=== PATIENT | female | born 1950 | race Caucasian/White ===

== ENCOUNTER → 2017-02-17 17:05 | Outpatient (CLI) | payer MEDICARE | END | disposition home or self-care (01) | LOC: D.MAMMO 11:30 | DX: N64.4 Mastodynia (principal) ==

== ENCOUNTER 2017-09-03 06:18 | Outpatient (CLI) | payer MEDICARE ==
[~2017-09-03] VITALS: Ht 167.6 cm; Wt 59.5 kg
--- NOTE | ~2017-09-03 | HEMODYNAMI ---
PATIENT:CAMACHO NOLAN MEDICAL RECORD: [id number] : 48 LOCATION:[facility] ADMISSION DATE: 09/03/17 Generatedon:09/03/20179:09 Patient name: CAMACHO NOLAN Patient #: [id number] SSN: : 1950 Date of study: 09/03/2017 Page: Of Hemodynamic Procedure Report Patient Data Patient Demographics Procedure consent was obtained First Name: CAMACHO Gender: Female Last Name: AN : 1950 [facility] Initial: G Age: 66 year(s) Patient #: [id number] Race: Unknown Additional ID: [id number] Contact details Address: [address] [place] [address] State: [facility] Zip code: [address] Past Medical History Allergies: No known allergies Admission Admission Data Admission Date: 09/03/2017 Admission Time: 6:18 Lab Results Lab Result Date: 09/03/2017 Lab Result Time: 7:30 Biochemistry Name Units Result Min Max BUN mg/dl 9 --(*---)-- 7 18 Creatinine mg/dl 0.6 --(*---)-- 0.6 1.3 CBC Name Units Result Min Max Hematocrit % 40.3 -*(----)-- 42 54 Hemoglobin g/dl 14.2 --(*---)-- 13.5 17.5 Procedure Procedure Types Cath Procedure Diagnostic Procedure [facility] w/Coronaries Procedure Description Procedure Date Procedure Date: 09/03/2017 Procedure Start Time: 8:57 Procedure End Time: 9:08 Procedure Staff Name Function Rikki Baxter MD Performing Physician Akila Grayson RT Monitor Alycia North RT Scrub Johan Stanton RN Nurse Procedure Data Cath Procedure Fluoroscopy Diagnostic fluoroscopy Total fluoroscopy Time: 1.6 time: 1.6 min min Diagnostic fluoroscopy Total fluoroscopy dose: 234 dose: 234 mGy mGy Contrast Material Contrast Material Type Amount (ml) Isovue 300 45 Entry Location Entry Primary Successful Side Size Upsize Upsize Entry Closure Reynolds ccessful Closure Location (Fr) 1 (Fr) 2 (Fr) Remarks Device Remarks Radial Right 6 Fr Mechanical artery Short Compression Estimated blood loss: 5 ml Diagnostic catheters Device Type Used For End Catheter Placement DIAGNOSTIC Pratts 110cm 5 Procedure Fr catheter ([id number]) Procedure Complications No complications Procedure Medications Medication Administration Route Dosage 0.9% NaCl I.V. 100 ml/hr Oxygen etCO2 Nasal cannula 2 l/min Heparin Flush Bag added to field 2 bags (1000units/500ml NS) Lidocaine 2% added to field 20 Radial Cocktail added to field (Verapomil 2mg/Nitro 400mcg/Heparin 1500units) Versed I.V. 1 mg Fentanyl I.V. 50 mcg Versed I.V. 1 mg Fentanyl I.V. 50 mcg Radial Cocktail I.A. (Verapomil 2mg/Nitro 400mcg/Heparin 1500units) Hemodynamics Rest HGB: 14.2 (g/dl) Heart Rate: 68 (bpm) Pressure Samples Time Site Value (mmHg) Purpose Heart Use Rate(bpm) 9:00 LV 105/-1,10 Snapshot 83 9:01 AO 101/60(80) Pullback 83 9:01 LV 116/7,17 Pullback 83 Gradients Valve Time Site 1 Site 2 Mean SEP/DFP Peak To Heart Use (mmHg) (sec/min) Peak Rate (mmHg) (bpm) Aortic 9:01 LV AO 6 16 15 83 116/7,17 101/60(80) Calculations Valve P-P Mean Valve Index Valve Source Name Gradient Area Flow (cm2) Aortic 15 6 15 6 Snapshots Pre Cath Intra NCS Post Cath Vital Signs Time Heart Resp SPO2 etCO2 NIBP Rhythm Pain Sedation Rate (ipm) (%) (mmHg) (mmHg) Status Level (bpm) 8:41:00 70 20 100 0 123/65(83) NSR 0 (11) 10(A) , No pain 8:45:33 60 15 100 32.2 116/72(87) NSR 0 (11) 10(A) , No pain 8:50:07 72 20 100 36.7 100/75(87) NSR 0 (11) 10(A) , No pain 8:54:37 70 19 97 32.9 106/75(96) NSR 0 (11) 10(A) , No pain 8:59:10 82 19 96 0 97/61(88) NSR 0 (11) 9(A) , No pain 9:03:44 84 18 97 31.4 89/50(68) NSR 0 (11) 9(A) , No pain 9:08:16 78 9 98 40.4 86/48(73) NSR 0 (11) 9(A) , No pain Medications Time Medication Route Dose Verified Delivered Reason Notes Ef fectiveness by by 8:46:16 0.9% NaCl I.V. 100 Johan Johan Per ml/hr Romy Stanton physician RN RN 8:46:27 Oxygen etCO2 2 Johan Johan Per Nasal l/min Romy Stanton physician cannula RN RN 8:46:38 Heparin Flush added 2 Johan Johan used for Bag to bags Romy Stanton procedure (1000units/500ml field RN RN NS) 8:46:51 Lidocaine 2% added 20ml Johan Johan for local to vial Lorigan Lorigan anesthetic RN RN 8:47:00 Radial Cocktail added Johan Johan used for (Verapomil to Lorigan Lorigan procedure 2mg/Nitro RN RN 400mcg/Heparin 1500units) 8:52:22 Versed I.V. 1 mg Johan Johan for sedation Romy Stanton RN RN 8:52:30 Fentanyl I.V. 50 Johan Johan for sedation mcg Romy Stanton RN RN 8:57:29 Versed I.V. 1 mg Johan Johan for sedation Romy Stanton RN RN 8:57:35 Fentanyl I.V. 50 Johan Johan for sedation mcg Romy Stanton RN RN 8:58:55 Radial Cocktail I.A. Johan Rikki for (Verapomil Romy Baxter MD vasodilation 2mg/Nitro RN 400mcg/Heparin 1500units) Procedure Log Time Note 8:34:05 Johan Stanton RN sent for patient. Start room use. 8:34:07 Time tracking: Regular hours 8:34:12 Plan of Care:Hemodynamics will remain stable., Cardiac rhythm will remain stable., Comfort level will be maintained., Respiratory function will remain adequate., Patient/ family verbilizes understanding of procedure., Procedure tolerated without complication., Recovers from procedure without complications.. 8:34:15 Signed procedure consent form obtained from patient. 8:35:58 Patient allergic to No known allergies 8:36:14 Patient received from Pre/Post Procedure Room to CCL 1 Alert and oriented. Tansferred to table in Supine position. 8:36:15 Warm blankets applied, and alejandra hugger turned on for patient comfort. 8:36:16 Correct patient and procedure confirmed by team. 8:36:16 ECG and BP/O2 sat monitors applied to patient. 8:39:34 Lab Result : Hemoglobin 14.2 g/dl 8:39:34 Lab Result : Hematocrit 40.3 % 8:39:34 Lab Result : BUN 9 mg/dl 8:39:34 Lab Result : Creatinine 0.6 mg/dl 8:40:12 Vital chart was started 8:40:18 Rhythm: sinus rhythm 8:46:16 0.9% NaCl 100 ml/hr I.V. was administered by Johan Stanton RN; Per physician; 8:46:27 Oxygen 2 l/min etCO2 Nasal cannula was administered by Johan Stanton RN; Per physician; 8:46:38 Heparin Flush Bag (1000units/500ml NS) 2 bags added to field was administered by Johan Stanton RN; used for procedure; 8:46:51 Lidocaine 2% 20ml vial added to field was administered by Johan Stanton RN; for local anesthetic; 8:47:00 Radial Cocktail (Verapomil 2mg/Nitro 400mcg/Heparin 1500units) added to field was administered by Johan Stanton RN; used for procedure; 8:49:49 Baseline sample Acquired. 8:49:51 Full Disclosure recording started 8:50:10 H&P Date Dictated: 08/31/2017 Within 30 days and on chart., H&P Addendum completed by physician on day of procedure. (MUST COMPLETE FOR ALL OUTPATIENTS). 8:50:12 Pre-procedure instructions explained to patient. 8:50:12 Pre-op teaching completed and patient verbalized understanding. 8:50:14 Family in patients room. 8:50:15 Patient NPO since Midnight. 8:50:18 Is the patient allergic to Iodine/contrast media? No. 8:50:19 Is patient on blood thinner?No 8:50:20 Patient diabetic? Yes. 8:50:22 If diabetic: On Metformin? No 8:50:25 Patient not . Patient is over age 55. 8:50:27 Previous problem with sedation/anesthesia? No ? 8:50:28 Snore? Yes 8:50:30 Sleep apnea? No 8:50:31 Deviated septum? No 8:50:32 Opens mouth fully? Yes 8:50:38 Sticks out tongue? Yes 8:50:40 Airway obstruction? No ? 8:50:43 Dentures? Yes IN TIGHT 8:50:46 Modified Eugenio's test Ulnar < 7 seconds 8:51:46 Patient pain scale 0/10 ?. 8:51:50 IV patent on arrival in left hand with 0.9% NaCl at [facility]. 8:51:53 Lab results completed and on chart. 8:51:55 Right Radial & Right Groin area was prepped with chlora-prep and draped in sterile fashion 8:51:57 Alarms reviewed by RKelvin N. 8:51:59 Sharps counted by scrub and verified by R.N. 8:52:01 --------ALL STOP TIME OUT------ 8:52:02 Final Timeout: patient, procedure, and site verified with staff and physician. All members of the team are in agreement. 8:52:04 Right Radial & Right Groin site verified by team. 8:52:06 Physical assessment completed. ASA score P 2 - A patient with mild systemic disease as per Rikki Baxter MD. 8:52:09 Sedation plan: IV Moderate Sedation Medication:Versed, Fentanyl 8:52:22 Versed 1 mg I.V. was administered by Johan Stanton RN; for sedation; 8:52:30 Fentanyl 50 mcg I.V. was administered by Johan Stanton RN; for sedation; 8:52:52 Use device set Radial Dx or PCI 8:52:53 ACIST Syringe (69101) opened to sterile field. 8:52:55 Bag Decanter () opened to sterile field. 8:52:56 ACIST Hand Control (59564) opened to sterile field. 8:52:56 ACIST Manifold (83303) opened to sterile field. 8:52:57 Tegaderm 4 x 4 (1626W) opened to sterile field. 8:52:58 Medline Cath Pack ([id number]) opened to sterile field. 8:52:58 SHEATH 6FR Slender ([id number]) opened to sterile field. 8:52:59 DIAGNOSTIC WIRE .035 260cm J wire (108476) opened to sterile field. 8:53:00 MBrace Wrist Support ([id number]) opened to sterile field. 8:55:07 Zero performed for pressure channel P1 8:56:46 Procedure started. 8:57:07 Local anesthetic to right radial artery with Lidocaine 2% by Rikki Baxter MD.INITIAL ACCESS ONLY 8:57:29 Versed 1 mg I.V. was administered by Johan Stanton RN; for sedation; 8:57:35 Fentanyl 50 mcg I.V. was administered by Johan Stanton RN; for sedation; 8:58:22 A 6 Fr Short sheath was inserted into the Right Radial artery 8:58:55 Radial Cocktail (Verapomil 2mg/Nitro 400mcg/Heparin 1500units) I.A. was administered by Rikki Baxter MD; for vasodilation; 8:59:42 A DIAGNOSTIC Pratts 110cm 5 Fr catheter ([id number]) was advanced over the wire and used for Procedure. 8:59:53 Injector settings: Ml/sec: 7, Volume: 15, 8:59:57 LV gram done using TAYLOR 9:00:00 LV hemodynamics recorded. 9:01:17 EF : 55 % 9:02:18 LCA angiography performed. 9:03:25 RCA angiography performed. 9:05:16 Catheter removed. 9:05:25 TR BAND Standard ([id number]) opened to sterile field. 9:05:37 Procedure ended.(Physican Out) 9:05:47 Fluoroscopy time 01.60 minutes. 9:05:53 Fluoroscopy dose: 234 mGy 9:05:53 Flurop Dose total: 234 9:06:07 Contrast amount:Isovue 300 45ml. 9:06:09 Sharps counted by scrub and verified by R.N. 9:06:17 Sheath removed intact; hemostasis achieved with Mechanical Compression to the Right Radial artery. 9:06:26 TR band inflated with 10cc of air. 9:07:34 Post-procedure physical assessment completed. ASA score P 2 - A patient with mild systemic disease as per Rikki Baxter MD. 9:07:40 Post procedure rhythm: unchanged. 9:07:43 Estimated blood loss: 5 ml 9:07:44 Post procedure instruction explained to patient.Patient verbalizes understanding. 9:07:45 Patient needs reinforcement of post procedure teaching. 9:08:26 Procedure and supply charges have been captured, reviewed, submitted and are correct. 9:08:28 Procedure Complication : No complications 9:08:31 Vital chart was stopped 9:08:32 See physician's report for complete and final results. 9:08:33 Report given to Pre/Post Procedure Room. 9:08:35 Patient transfered to Pre/Post Procedure Room with Bed. 9:08:37 Procedure ended. 9:08:37 Full Disclosure recording stopped 9:08:42 End room use (Document Last) Device Usage Item Name Manufacture Quantity Catalog Hospital Part Current Minima l Lot# / Number Charge Number Stock Stock Serial# Code ACIST Acist 1 11381 486228 545159 039018 20 Syringe Medical (87546) Systems Inc Bag Decanter Microtek 1 2001S 437164 16969 [id number] 5 (2001S) Medical Inc. ACIST Hand Acist 1 97050 743041 329204 585034 5 Control Medical (04011) Systems Inc ACIST Acist 1 63359 012997 412067 331277 5 Manifold Medical (31433) Systems Inc Tegaderm 4 x 3M 1 1626W 973994 769575 761176 5 4 (1626W) Medline Cath Cardinal 1 [id number] 040874 62428 692827 5 [facility] ([id number]) SHEATH 6FR Terumo 1 [id number] 923587 512148 961804 40 Slender ([id number]) DIAGNOSTIC [facility] [place] 1 198878 363679 376697 560472 30 WIRE .035 260cm J wire (213650) MBrace Wrist Advanced 1 140-0250-00 816564 32278 505120 5 Support Vascular ([id number]) Dynamics DIAGNOSTIC Terumo 1 40-6043 831298 523399 654658 5 Pratts 110cm 5 Fr catheter (301414) TR BAND Terumo 1 [id number] 311234 010905 982373 40 Standard ([id number]) Signature Audit [place] Stage Time Signature Unsigned Intra-Procedure 09/03/2017 Akila Grayson 9:09:21 AM RT(R) Signatures Monitor : Akila Grayson Signature : RT Date : Time : [facility] [address] [facility] [place] [address]
[2017-09-03] MEDS ORDERED: ZANTAC150 MG PO (07:26)
[2017-09-03] MEDS ORDERED: ATIVAN0.5 MG PO (07:26)
[2017-09-03] MEDS ORDERED: FORTEO PEN20 MCG SQ (07:28)
[2017-09-03 07:40] VITALS: BP 118/68; Ht 167.6 cm; Wt 59.5 kg
[2017-09-03 07:42] LABS: BASOPHILS 0.3 % (0-2); EOSINOPHILS 3.1 % (0-7); HEMATOCRIT 40.3 % (36.0-48.0); HEMOGLOBIN 14.2 g/dL (12-16); IMMATURE GRANULOCYTES 0.3 % (0-5); LYMPHOCYTES 47.1 % (15-50); MCH 31.4 pg (26.0-34.0); MCHC 35.2 g/dL (31.0-37.0); MCV 89.2 fL (80.0-100.0); MEAN PLATELET VOLUME 10.3 fL (7.4-10.4); MONOCYTES 11.2 % (2-11); PLATELET COUNT 129 10x3/uL (130-400); RBC 4.52 10x6/uL (4.00-5.40); RDW 13.3 % (11.5-14.5); WBC 3.6 10x3/uL (4.8-10.8)
[2017-09-03 07:58] LABS: CALC OSMOLALITY 276 mosm/kg (275-300); CALCIUM 9.1 mg/dL (8.5-10.1); CARBON DIOXIDE 26.4 mmol/L (21.0-32.0); CHLORIDE - SERUM 102 mmol/L (98-107); CREATININE - SERUM 0.6 mg/dL (0.6-1.3); GLUCOSE 86 mg/dL (74-106); POTASSIUM - SERUM 3.9 mmol/L (3.5-5.1); SODIUM 140 mmol/L (136-145); UREA NITROGEN 9 mg/dL (7-18); eGFR NON AFRICAN AMERICAN > 90 mL/min (90-120)
[2017-09-03] MEDS ORDERED: ISOSORBIDE MONO30 M1 PO (09:33)
== END 2017-09-03 12:30 | disposition home or self-care (01) ==
LOC: D.CATH 06:18
PROVIDERS: Internal Medicine Cardiovascular Disease
DX: I25.119 Atherosclerotic heart disease of native coronary artery with unspecified angina pectoris (principal); Z01.812 Encounter for preprocedural laboratory examination

== ENCOUNTER → 2018-01-07 08:38 | Outpatient (CLI) | payer MEDICARE ==
[2017-09-03 07:40] VITALS: BMI 21.1
[~2018-01-07 08:38] MED LIST: ATIVAN0.5 MG PO; FORTEO PEN20 MCG SQ; ISOSORBIDE MONO30 M1 PO; ZANTAC150 MG PO
== END | disposition home or self-care (01) ==
LOC: D.CT 08:38
DX: R41.3 Other amnesia (principal)

== ENCOUNTER → 2018-03-05 16:48 | Outpatient (CLI) | payer MEDICARE ==
[2017-09-03 07:40] VITALS: BMI 21.1
== END | disposition home or self-care (01) ==
LOC: D.MAMMO 15:15
DX: Z12.31 Encounter for screening mammogram for malignant neoplasm of breast (principal)

== ENCOUNTER 2019-02-14 08:00 | Outpatient (CLI) | payer MEDICARE ==
[2017-09-03 07:40] VITALS: Wt 67.1 kg
[~2019-02-14 08:00] MED LIST changes: +ATIVAN0.5 MG; -ATIVAN0.5 MG PO
[2019-02-14] MEDS ORDERED: LINZESS145 MCG PO (09:33)
[2019-02-14] MEDS ORDERED: CELEXA20 MG PO (09:33)
[2019-02-14] MEDS ORDERED: DONEPEZIL HCL5 MG PO (09:34)
[2019-02-14 09:38] LABS: HEMOGLOBIN 13.2 g/dL (12-16); MCH 31.3 pg (26.0-34.0); MCHC 35.7 g/dL (31.0-37.0); MCV 87.7 fL (80.0-100.0); MEAN PLATELET VOLUME 10.3 fL (7.4-10.4); RBC 4.22 10x6/uL (4.00-5.40); RDW 14.3 % (11.5-14.5); WBC 3.6 10x3/uL (4.8-10.8)
== END 2019-02-14 08:01 | disposition home or self-care (01) ==
LOC: D.OPS 08:00 → D.PAN 02-15 07:30 → D.OPS 02-15 10:00 → D.PAN 02-15 10:10 → D.OPS 02-15 10:30 → EDSTATUS 02-17 07:30 → D.OPS 02-17 07:30
PROVIDERS: Anesthesiology; ATTEND Urology
DX: N81.10 Cystocele, unspecified (principal); N81.6 Rectocele

== ENCOUNTER 2019-02-24 07:48 | Day surgery (SDC) | payer MEDICARE ==
[2019-02-23 09:44] LABS: HEMATOCRIT 39.2 % (36.0-48.0); HEMOGLOBIN 13.9 g/dL (12-16); MCH 31.8 pg (26.0-34.0); MCHC 35.5 g/dL (31.0-37.0); MCV 89.7 fL (80.0-100.0); MEAN PLATELET VOLUME 9.6 fL (7.4-10.4); RBC 4.37 10x6/uL (4.00-5.40); WBC 3.1 10x3/uL (4.8-10.8)
[~2019-02-24] VITALS: Ht 165.1 cm; Wt 67.1 kg
[~2019-02-24 07:48] MED LIST changes: +CELEXA20 MG PO; +DONEPEZIL HCL5 MG PO; +LINZESS145 MCG PO
[2019-02-24] MEDS ORDERED: ALIVE MULTIVITAMIN (07:56)
[2019-02-24] MEDS ORDERED: CALCIUM 500 +1 EAC3 PO (07:56)
[2019-02-24 08:09] VITALS: BP 141/72; Ht 165.1 cm; Wt 67.1 kg
--- NOTE | 2019-02-24 16:47 | NUR ---
1635-REC'D FROM . C/O PAIN 09/01. VSS. IV PATENT AT [facility]. FULL LIQUID TRAY IN ROOM. NEW ORDER PLACED FOR PO PAIN MEDICATION. PER REPORT PT HAD DILAUDID 1.5MG IVP IN RR. AT BEDSIDE CL IN EASY REACH. ABD SOFT NON DISTENDED.
--- NOTE | 2019-02-24 17:12 | NUR ---
1705-TOLERATED PUDDING AND JELLO.DRINKING ICE WATER. ADMINISTERED NORCO 7.5/325MG 1 BY MOUTH PER ORDERS FOR PAIN PT RATES 4/10 IN EDDIE AREA. VSS. AT BEDSIDE, CL IN EASY REACH
--- NOTE | 2019-02-24 20:00 | NUR ---
16 FR LACEY CATHETER INSERTED, DRAINING CLEAR LIGHT YELLOW URINE, 500 CC URINE RETURN. SECURED WITH STAT LOCK, LEFT FOREARM PIV DC'D WITH TIP INTACT. PATIENT DRESSING IN PERSONAL CLOTHING 2024 DISCHARGE INSTRUCTIONS REVIEWED WITH PATIENT, SPOUSE, AND DAUGHTER. DISCHARGED HOME VIA WHEELCHAIR TO PRIVATE VEHICLE WITH DAUGHTER
--- NOTE | 2019-02-25 10:30 | OP ---
PATIENT NAME: CAMACHO NOLAN MEDICAL RECORD: [id number] :48 LOCATION:D.[facility] ADMISSION DATE: SURGEON: AYDIN GRIMM MD DATE OF OPERATION: 02/24/2019 SURGEON: Aydin Grimm MD ANESTHESIA: General anesthesia by Rafael Mocnada CRNA. DIAGNOSES: Midline cystocele Mentcle-Walker grade III; female stress urinary incontinence, rectocele Mentcle-Walker grade II. PROCEDURES: Cystoscopy, pubovaginal sling using the [employer] Obtryx II mesh graft, cystocele repair with Coloplast [place] Dermis 8 x 12 cm, rectocele repair with levator ani plication. FINDINGS: On cystoscopy, single ureteral orifices bilaterally with no bladder tumors. No bladder injury seen. BLOOD LOSS: 100 mL. CLINICAL HISTORY: This is a 68-year-old female, A0. She has had a hysterectomy in the past. She noticed descent of her pelvic organs and now she can see a bulge in the vaginal area. As well as she has urge urinary incontinence and urinary frequency. There is hesitancy in starting to void and there is a slow urine flow. She feels that she is not fully emptying after voiding. Also she has trouble emptying her rectum fully after a bowel movement. On physical examination, she did not have stress urinary incontinence. However, she did have a midline cystocele Mentcle-Walker grade III and a rectocele Mentcle-Walker grade II. There is no obvious enterocele. I discussed reduction of the cystocele and rectocele with her. There is a risk that reducing the cystocele would unmask occult stress urinary incontinence. She has decided to have a pubovaginal sling placed also prophylactically to prevent stress urinary incontinence. She is aware of the risks of mesh use including infection, graft erosion, graft extrusion into the vagina, pain and dyspareunia. SHE IS ALLERGIC TO FORTEO AND NITRO-DUR. She was given Ancef conciliator to the OR. DESCRIPTION OF PROCEDURE: The patient was given induction of general anesthetic in supine position. She was then placed into lithotomy position and prepped and draped. A weighted speculum was used to hold the posterior vaginal wall down. A 16-Filipino Lopez catheter was placed into the bladder and put to bag drainage. The labia majora were retracted laterally using #1 nylon stay sutures. These were anchored to the medial thighs. The anterior vaginal wall was infiltrated with a vasopressin solution. Twenty units of vasopressin was dissolved in 100 mL of injectable normal saline. This was injected into the anterior vaginal wall for hydrodissection. A transverse incision was then made at the level of the bladder neck. Dissection was then carried out using Metzenbaum scissors. These raised the vaginal mucosa off the bladder and the urethra as well as the periurethral tissues. The pubocervical ligament was perforated on each side lateral to the bladder. Anteriorly, the area of the space of Retzius was cleared as well as the obturator membrane surface. Posteriorly, the presacral space was cleared, which included the ischial spine and the attached sacrospinous ligaments. We then placed our 4 suspensory sutures. The 2 posterior suspensory sutures were placed 1 cm medial to the ischial spine. They went to the sacrospinous ligament. The reason for moving 1 cm medial is to OPERATIVE REPORT [id number] CAMACHO NOLAN G avoid hitting the internal pudendal artery and nerves. Anteriorly, the 2 suspensory sutures of 2-0 Prolene were placed using the [employer] suture tow motor driver into Quinton's ligament. One suture was placed on each side. All 4 attachment points were tested and they were shown to be quite strong. I then landmarked for the pubovaginal sling. The landmark is inferior to the insertion of the adductor longus muscle onto the descending pubic ramus. This point was marked using a marking pen and then a stab incision was made on each side with a #15 blade. The helical trocars for the [employer] Obtryx system were then placed through with a trocar going deep to the descending pubic ramus. The tip of the trocar then exited through the vaginal dissection space. Here, the loop of the graft was placed onto the tip of the trocar and the trocar was withdrawn resulting in transobturator passage of the graft. The graft has a tab on it, which indicates the midpoint of the graft. This was placed under the mid urethra. The tab was then cut off and removed entirely. At this point, the Lopez catheter was removed from the bladder and cystoscopy was performed. A 17-Filipino scope was used. No bladder injury was noted. The bladder was filled up through the cystoscope into the bladder. The scope was then removed. By manual suprapubic pressure, we could elicit some leakage per the urethra. Eventually, the graft tension was increased till minimal leakage was seen. I did not wish to make the graft overly tight as she did not have issues with stress incontinence up to now. I did not want to put her into urinary retention either. The clear plastic sheath material was entirely removed on each side of the graft. The graft arms were cut off where they exited the inguinal skin. The skin stab incisions were closed using simple interrupted 4-0 Vicryl sutures. We then placed the cystocele repair graft on to the field. The distance between the ischial spines was measured at 12 cm. The distance from the bladder neck to the level of the vaginal cuff was 6 cm. An 8 x 12 cm graft of cadaveric dermis was obtained. An arch was cut out on one longitudinal wall with the apex of the arch being 6 cm from the opposite side. This arch is to prevent obstruction of the rectum by compression of the rectum. This would help with defecation. The suspensory sutures were placed through the respective corners. The corners were then tied down to result in reduction of the cystocele. The vaginal incision was then closed using running 4-0 Monocryl. We then turned our attention to the rectocele. The weighted speculum was removed. The Lopez catheter was placed back into the bladder to allow drainage during the rectocele repair. The posterior vaginal wall was infiltrated with a vasopressin solution. An ellipse of the posterior vaginal wall was excised using a #15 blade and with dissection using the Metzenbaum scissors. The edges of the posterior vaginal wall were then dissected using Metzenbaum scissors. This was dissected until we reached the pararectal gutters on either side of which lay the levator ani muscles. Once the dissection was complete, I was then able to put horizontal mattress sutures of 2-0 Prolene using the Capio suture tow motor driver. I think about 7 of these horizontal mattresses were placed to fully reduce the rectocele. The vaginal incision was then closed using running 4-0 Monocryl. The vaginal packing was placed using Kerlix infiltrated with estrogen cream. This packing will be removed prior to the patient going home. The Lopez catheter was removed. The patient will be going home today. I will see her in followup in 2 weeks' time. TRANSINT:[id number] Voice Confirmation ID: [id number] DOCUMENT ID: [id number] OPERATIVE REPORT [id number] CAMACHO NOLAN, AYDIN Saucedo MD at 1030 CC: [id number] DICTATION DATE: 02/24/19 1609 [place] [place]: 02/25/19 0148 [facility] 02/24/19 [place] [id number] [place] [id number]
== END 2019-02-24 20:25 | disposition home or self-care (01) ==
LOC: D.OPS 07:48 → D.PAN 13:45 → EDSTATUS 13:45 → D.OPS 13:45
PROVIDERS: Anesthesiology; ATTEND Urology
DX: N81.10 Cystocele, unspecified (principal); N81.6 Rectocele; N39.3 Stress incontinence (female) (male)

== ENCOUNTER → 2019-03-09 22:16 | Outpatient (CLI) | payer MEDICARE ==
[2019-02-24 08:09] VITALS: BMI 24.6
[~2019-03-09 22:16] MED LIST changes: +ALIVE MULTIVITAMIN; +CALCIUM 500 +1 EAC3 PO
== END | disposition home or self-care (01) ==
LOC: D.LABREF 22:16
PROVIDERS: ATTEND Urology
DX: N81.10 Cystocele, unspecified (principal)

== ENCOUNTER 2019-03-28 08:00 | Outpatient (CLI) | payer MEDICARE ==
[2019-02-24 08:09] VITALS: BMI 24.6
== END 2019-03-28 23:59 | disposition home or self-care (01) ==
LOC: D.MAMMO 08:00
PROVIDERS: ATTEND Family Medicine
DX: Z12.31 Encounter for screening mammogram for malignant neoplasm of breast (principal)

== ENCOUNTER → 2019-04-06 21:09 | Outpatient (CLI) | payer MEDICARE ==
[2019-02-24 08:09] VITALS: BMI 24.6
== END | disposition home or self-care (01) ==
LOC: D.LABREF 21:09
PROVIDERS: ATTEND Urology
DX: R82.90 Unspecified abnormal findings in urine (principal); R31.9 Hematuria, unspecified